=== PATIENT | male | born 1955 | race Caucasian/White ===

== ENCOUNTER 2025-03-31 22:25 | Emergency (ER) | payer BC, MEDICARE ==
[~2025-03-31] VITALS: Ht 172.7 cm; Wt 77.5 kg
--- NOTE | 2025-03-31 22:35 | ED.PDOC ---
History of Present Illness HPI Comments 70-year-old male came to ER by EMS for fever. Patient has history of hypertension, diabetes and dyslipidemia. States for the past week, he has been having flu-like symptoms, intermittent episodes of fever and chills, generalized weakness, body malaise, nausea and loss of appetite. Upon arrival temperature 103 F. Patient denies any recent travel or new food sources. Patient did not look toxic. Chief Complaint: Fever Time Seen by MD: 22:34 Reviewed Notes: Nurses Notes, Broadcast Technician Notes Allergies: Coded Allergies: NO KNOWN ALLERGIES (Unverified , 03/31/25) Information Source: Patient, Emergency Med Personnel Mode of Arrival: EMS Severity: Moderate Timing: Days Duration: Intermittent Prehospital treatment: None Past Medical History PAST MEDICAL HISTORY: ESRD, High Lipids, HTN Surgical History: Denies all surgeries Family History Family History: Reviewed,noncontributory to illness Social History Smoker: Non-Smoker Alcohol: Denies ETOH Use Drugs: Denies Drug Use Lives In: Home Constitutional: reports: chills, fatigue, fever, malaise, weakness; denies: diaphoresis, sweats, others EENTM: denies: blurred vision, double vision, ear bleeding, ear discharge, ear drainage, ear pain, ear ringing, eye pain, eye redness, hearing loss, mouth pain, mouth swelling, nasal discharge, nose bleeding, nose congestion, nose pain, photophobia, tearing, throat pain, throat swelling, voice changes, others Respiratory: denies: cough, hemoptysis, orthopnea, SOB at rest, shortness of breath, SOB with excertion, stridor, wheezing, others Cardiovascular: denies: chest pain, dizzy spells, diaphoresis, Dyspnea on exertion, edema, irregular heart beat, left arm pain, lightheadedness, palpitations, PND, syncope, others Gastrointestinal: reports: nausea, poor appetite; denies: abdomen distended, abdominal pain, blood streaked bowels, constipated, diarrhea, dysphagia, difficulty swallowing, hematemesis, melena, poor fluid intake, rectal bleeding, rectal pain, vomiting, others Genitourinary: denies: burning, dysuria, flank pain, frequency, hematuria, incontinence, penile discharge, penile sore, pain, testicle pain, testicle swelling, urgency, others Neurological: denies: dizziness, fainting, headache, left sided numbness, left sided weakness, numbness, paresthesia, pre-existing deficit, right sided numbness, right sided weakness, seizure, speech problems, tingling, tremors, weakness, others Musculoskeletal: denies: back pain, gout, joint pain, joint swelling, muscle pain, muscle stiffness, neck pain, others Integumetry: denies: bruises, change in color, change in hair/nails, dryness, laceration, lesions, lumps, rash, wounds, others Allergic/Immunocompromised: denies: Difficulty Healing, Frequent Infections, Hives, Itching, others Hematologic/Lymphatic: denies: anemia, blood clots, easy bleeding, easy bruis ing, swollen glands, others Endocrine: denies: excessive hunger, excessive sweating, excessive thirst, exc essive urination, flushing, intolerance to cold, intolerance to heat, unexplained weight gain, unexplained weight loss, others Psychiatric: denies: anxiety, bipolar disorder, depression, hopeless, panic disorder, schizophrenia, sleepless, suicidal, others Physical Exam General Appearance: Moderate Distress (Distress due to continued fever concerns. Patient did not look toxic.), Normal HEENT: Normal ENT Inspection, Pharynx Normal, TMs Normal Neck: Full Range of Motion, Non-Tender, Normal, Normal Inspection Respiratory: Chest Non-Tender, Lungs Clear, No Accessory Muscle Use, No Respiratory Distress, Normal Breath Sounds Cardiovascular: No Edema, No JVD, No Murmur, No Gallop, Normal Peripheral Pulses, Regular Rate/Rhythm Breast Exam: Deferred Gastrointestinal: No Organomegaly, Non Tender, No Pulsatile Mass, Normal Bowel Sounds, Soft Genitalia: Deferred Pelvic: Deferred Rectal: Deferred Extremities: No calf tenderness, Normal capillary refill, Normal inspection, Normal range of motion, Non-tender, No pedal edema Musculoskeletal : Apperance: Normal Neurologic: Alert, No Motor Deficits, Normal Affect, Normal Mood, No Sensory Deficits Cerebellar Function: Normal Reflexes: Normal Skin: Dry, Normal Color, Warm Lymphatic: No Adenopathy Was a procedure done? Was a procedure done?: No Differential Dx Considerations may include: Anemia, electrolyte imbalance, viral syndrome, urinary tract infection, sepsis X-Ray, Labs, Meds, VS Vital Signs Date Time Temp Pulse Resp B/P (MAP) Pulse Ox O2 Delivery O2 Flow Rate FiO2 7/5/25 23:39 99.7 03/31/25 23:39 99.7 99 17 147/75 (99) 95 99.7 03/31/25 22:58 103.1 03/31/25 22:50 107 03/31/25 22:41 103.1 113 18 160/81 (107) 96 103.1 03/31/25 22:40 103.1 113 18 160/81 (107) 96 103.1 03/31/25 22:40 113 18 96 Room Air 03/31/25 22:40 103.1 113 18 160/81 (107) 96 103.1 Lab Test 03/31/25 22:59 03/31/25 22:45 03/31/25 22:41 Range/Units Urine Color Yellow Yellow Urine Clarity Clear Clear Urine pH 5.5 5.0-9.0 Urine Specific [place] 1.036 H 1.001-1.035 Urine Protein Trace H Negative Urine Ketones 2+ H Negative Urine Blood 2+ H Negative /uL Urine Nitrite Negative Negative Urine Bilirubin Negative Negative Urine Urobilinogen Normal Negative mg/dL Urine Leukocyte Esterase Negative Negative /uL Urine RBC 8 0 - 3 /hpf Urine Microscopic WBC 1 0-3 /HPF Urine Squamous Epithelial Cells None seen <5 /hpf Urine Bacteria None seen None Seen /hpf Urine Glucose 4+ H Normal mg/dL Influenza Type A Antigen Negative Negative Influenza Type B Antigen Negative Negative SARS-CoV-2 Antigen (Rapid) Negative NEGATIVE White Blood Count 7.3 4.4-10.8 10^3/uL Red Blood Count 4.64 4.5-5.90 10^6/uL Hemoglobin 14.3 13.5-17.5 g/dL Hematocrit 41.1 41.0-53.0 % Mean Corpuscular Volume 88.5 80.0-100.0 fL Mean Corpuscular Hemoglobin 30.8 28.0-32.0 pg Mean Corpuscular Hemoglobin Concent 34.8 32.0-36.0 g/dL Red Cell Distribution Width 12.8 11.8-14.3 % Platelet Count 139 L 140-450 10^3/uL Mean Platelet Volume 8.4 6.9-10.8 fL Neutrophils (%) (Auto) 76.2 37.0-80.0 % Lymphocytes (%) (Auto) 7.8 L 10.0-50.0 % Monocytes (%) (Auto) 15.5 H 0.0-12.0 % Eosinophils (%) (Auto) 0.1 0.0-7.0 % Basophils (%) (Auto) 0.4 0.0-2.0 % Neutrophils # (Auto) 5.6 1.6-8.6 10 ^3/uL Lymphocytes # (Auto) 0.6 0.4-5.4 10 ^3/uL Monocytes # (Auto) 1.1 0-1.3 10 ^3/uL Eosinophils # (Auto) 0 0-0.8 10 ^3/uL Basophils # (Auto) 0 0-0.2 10 ^3/uL Nucleated Red Blood Cells 0.0 % Sodium Level 129 L 136-145 mmol/L Potassium Level 4.5 3.5-5.1 mmol/L Chloride Level 97 L 98-107 mmol/L Carbon Dioxide Level 19 L 20-31 mmol/L Anion Gap 13 5-15 Blood Urea Nitrogen 18 9-23 mg/dL Creatinine 1.01 0.700-1.30 mg/dL Glomerular Filtration Rate Calc 80 >90 mL/min BUN/Creatinine Ratio 17.8 10.0-20.0 Serum Glucose 305 H 74-106 mg/dL Calcium Level 9.9 8.7-10.4 mg/dL Current Medications Medications (Trade) Dose Ordered Sig/Mary Route Start Time Stop Time Status Last Admin Acetaminophen (Tylenol Tablet Or Capsule) 1,000 mg ONCE ONCE PO 03/31/25 22:45 03/31/25 22:46 DC 03/31/25 22:58 Sodium Chloride 1,000 ml @ 1,000 mls/hr Q1H ONCE IV 03/31/25 23:00 03/31/25 23:59 DC 03/31/25 22:58 X-Ray, Labs, Meds, VS Comment All studies performed the ED were evaluated by me personally. Swabs were unremarkable for any COVID or influenza. Serum studies revealed a poorly controlled diabetes with a glucose of over 300 and a mild hypokalemia. Rony almeida's temperature returned into acceptable range as did his blood pressure and heart rate. Patient will be discharged home with Tylenol and or Motrin as needed for symptomatic relief. Patient has been advised to utilize good hydration and healthy nutrition throughout illness event. Time of 1ST Reevaluation: 01:16 Reevaluation 1ST: Improved Consultation: PCP Patient Education/Counseling: Diagnosis, Treatment Family Education/Counseling: Diagnosis, Treatment, No Family Present SEPSIS Sepsis Screen Recent Procedure: No Heart Rate >90: Yes Temp<36 C (96.8 F) or >38.3 C: Yes SBP <90 or MAP <65 mmHG: No New Acute Mental Status Change: No Is the patient on CPAP, BIPAP,: No IV fluid challenge completed?: No SEPSIS EXCLUSION NOTE: Patient arrived with a fever and therefore, tachycardia and blood pressure concerns accompanied that issue. Once the temperature was reduced, patient's vitals stabilized. Patient never appeared septic and laboratories confirmed that. Physician Orders Sodium Chloride 0.9% (03/31/25 22:45) Heplock Iv (03/31/25 ) Vital Signs Date Time Temp Pulse Resp B/P (MAP) Pulse Ox O2 Delivery O2 Flow Rate FiO2 03/31/25 23:39 99.7 03/31/25 23:39 99.7 99 17 147/75 (99) 95 99.7 03/31/25 22:58 103.1 03/31/25 22:50 107 03/31/25 22:41 103.1 113 18 160/81 (107) 96 103.1 03/31/25 22:40 103.1 113 18 160/81 (107) 96 103.1 03/31/25 22:40 113 18 96 Room Air 03/31/25 22:40 103.1 113 18 160/81 (107) 96 103.1 Laboratory Tests Test 03/31/25 22:41 White Blood Count 7.3 10^3/uL (4.4-10.8) Medications Medications Dose Ordered Sig/Mary Route Start Time Stop Time Status Last Admin Dose Admin Acetaminophen 1,000 mg ONCE ONCE PO 03/31/25 22:45 03/31/25 22:46 DC 03/31/25 22:58 Sodium Chloride 1,000 ml @ 1,000 mls/hr Q1H ONCE IV 03/31/25 23:00 03/31/25 23:59 DC 03/31/25 22:58 Departure 1 Departure Time of Disposition: 01:18 Impression: Primary Impression: Viral illness Disposition: HOME / SELF CARE / HOMELESS Condition: Stable Additional Instructions: Advised patient utilize medication as needed for symptomatic fever reduction and nausea relief. Patient should practice good hydration and healthy nutrition throughout illness event. e-Prescriptions Ondansetron Odt 4MG Tab (ZOFRAN PO) 4 Mg Tb 4 MG PO Q6HP PRN, #20 TAB ODT TAB-DISSOLVE IN MOUTH, THEN SWALLOW Prov: RANDY SMITH PAC 04/01/25 Ibuprofen Micronized (Ibuprofen) 800 Mg Tab 800 MG PO Q8HP PRN, #20 TAB Prov: RANDY SMITH PAC 04/01/25 Acetaminophen (Acetaminophen) 500 Mg Tab 500 MG PO Q4HP PRN, #30 TAB Prov: RANDY SMITH PAC 04/01/25 Discharged With: Self, Friend Critical Care Note Critical Care Time?: No Stability Stability form required: No Heart Score Heart Score: Heart Score Response (Comments) Value History N/A 0 EKG N/A 0 Age N/A 0 Risk Factors N/A 0 Troponin N/A 0 Total 0 I personally scribed for RANDY SMITH PAC ([email or web address]) on 03/31/25 at 22:35. Electronically submitted by Bc Escalera ([facility] RANDY SMITH PAC Mar 31, 2025 22:35
[2025-03-31] MEDS ORDERED: ACETAMINOPHEN 325 MG TAB PO ONE (22:45)
--- NOTE | 2025-03-31 22:51 | ECG ---
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
[2025-03-31] MEDS: SODIUM CHLORIDE 0.9% 1,000 ML IV ONE ×2 (22:57→22:58)
[2025-03-31 22:58] LABS: Hematocrit 41.1 % (41.0-53.0); Hemoglobin 14.3 g/dL (13.5-17.5); Mean Corpuscular Hemoglobin 30.8 pg (28.0-32.0); Mean Corpuscular Volume 88.5 fL (80.0-100.0); Nucleated Red Blood Cells % 0.0 %
[2025-03-31] MEDS: ACETAMINOPHEN 500 MG TAB or CAP PO ONE (22:58)
[2025-03-31 23:01] LABS: Potassium 4.5 mmol/L (3.5-5.1)
[2025-03-31 23:02] LABS: Anion Gap 13 (5-15); Calcium 9.9 mg/dL (8.7-10.4)
[2025-03-31 23:04] LABS: Carbon Dioxide 19 mmol/L (20-31); Chloride 97 mmol/L (98-107); Sodium 129 mmol/L (136-145)
[2025-03-31 23:07] LABS: BUN/Creatinine Ratio 17.8 (10.0-20.0); Blood Urea Nitrogen 18 mg/dL (9-23); Glucose 305 mg/dL (74-106)
[2025-03-31 23:10] LABS: COVID19 ANTIGEN SOFIA FIA NEGATIVE (NEGATIVE)
[2025-03-31 23:39] VITALS: BP 147/75; PULSE 99; RESP 17; TEMP 99.7; O2SAT 95
[2025-04-01 00:47] LABS: Urine Protein, UAD TRACE (Negative)
[2025-04-01] MEDS ORDERED: ZOFR4T PO (01:19)
[2025-04-01] MEDS ORDERED: IBUP-1455 PO (01:19)
[2025-04-01] MEDS ORDERED: ACET500T58 PO (01:19)
[2025-04-01] MEDS: POTASSIUM EFFERVESENT TAB 25 MEQ PO ONE (01:33)
== END 2025-04-01 01:32 | disposition home or self-care (01) ==
LOC: ER 22:25 → EDBD 22:25 → ER 04-01 01:32
DX: B34.9 Viral infection, unspecified (principal); I12.0 Hypertensive chronic kidney disease with stage 5 chronic kidney disease or end stage renal disease; N18.6 End stage renal disease; E78.5 Hyperlipidemia, unspecified; Z20.822 Contact with and (suspected) exposure to COVID-19
CPT/HCPCS: 36415; 80048; 81001; 82947; 85025; 87426; 87804; 93005; 96360; 99284; J7030

== ENCOUNTER 2025-04-12 08:29 | Inpatient (IN) | payer BC, MEDICARE ==
[~2025-04-12] VITALS: Ht 172.7 cm; Wt 75.0 kg
[~2025-04-12 08:29] MED LIST: ACET500T58 PO; IBUP-1455 PO; ZOFR4T PO
--- NOTE | 2025-04-12 08:56 | ED.PDOC ---
SOB-HPI HPI Comments THIS IS A 70 YEAR OLD MALE PRESENTING TO THE ED WITH CHIEF COMPLAINT OF FLU-LIKE ILLNESS. PATIENT REPORTS THAT HE HAS BEEN EXPERIENCING SYMPTOMS OF FATIGUE, POOR APPETITE, AND BROWN PRODUCTIVE COUGH SINCE 03/31/25. PATIENT RELAYS THAT HE WAS SEEN IN [facility] ON 03/31 AND WAS DIAGNOSED WITH A URI, TAKING ANTIBIOTICS PRESCRIBED BY THE ED AND FROM HIS PCP AFTERWARDS, BUT NO RELIEF HAS BEEN NOTED. PT STILL C/O WEAK, NO ENERGY AND UNABLE TO SLEEP AT NIGHT. PATIENT DENIES ANY SOB, CHEST PAIN, FEVER, CHILLS, OR N/V, HEADASCHE, DIZZINESS AND OTHER COMPLAINTS. NO OTHER SYMPTOMS REPORTED AT THIS TIME OF CARE. Chief Complaint: Flu like Time Seen by MD: 08:53 Reviewed notes: Nurses Notes, Medications, Allergies Information Source: Patient Mode of Arrival: Ambulatory Severity: Moderate Timing: Weeks Duration: Since onset, Days Context: At Rest PE Risk Factors: None History of: Recent URI, Recent Antibiotic Prehospital treatment: Treatment, Other (ANTIBIOTICS) Modifying Factors: Nothing Associated Signs and Symptoms: Cough If cough with SOB: Productive Past Medical History PAST MEDICAL HISTORY: DM, High Lipids, HTN Surgical History: Denies all surgeries Family History Family History: Reviewed,noncontributory to illness Social History Smoker: Non-Smoker Alcohol: Denies ETOH Use Drugs: Denies Drug Use Lives In: Home Constitutional: reports: fatigue; denies: chills, diaphoresis, fever, malaise, sweats, weakness, others EENTM: denies: blurred vision, double vision, ear bleeding, ear discharge, ear drainage, ear pain, ear ringing, eye pain, eye redness, hearing loss, mouth pain, mouth swelling, nasal discharge, nose bleeding, nose congestion, nose pain, photophobia, tearing, throat pain, throat swelling, voice changes, others Respiratory: reports: cough; denies: hemoptysis, orthopnea, SOB at rest, shortness of breath, SOB with excertion, stridor, wheezing, others Cardiovascular: denies: chest pain, dizzy spells, diaphoresis, Dyspnea on exertion, edema, irregular heart beat, left arm pain, lightheadedness, palpitations, PND, syncope, others Gastrointestinal: reports: poor appetite; denies: abdomen distended, abdominal pain, blood streaked bowels, constipated, diarrhea, dysphagia, difficulty swallowing, hematemesis, melena, nausea, poor fluid intake, rectal bleeding, rectal pain, vomiting, others Genitourinary: denies: burning, dysuria, flank pain, frequency, hematuria, incontinence, penile discharge, penile sore, pain, testicle pain, testicle swelling, urgency, others Neurological: denies: dizziness, fainting, headache, left sided numbness, left sided weakness, numbness, paresthesia, pre-existing deficit, right sided numbness, right sided weakness, seizure, speech problems, tingling, tremors, weakness, others Musculoskeletal: denies: back pain, gout, joint pain, joint swelling, muscle pain, muscle stiffness, neck pain, others Integumetry: denies: bruises, change in color, change in hair/nails, dryness, laceration, lesions, lumps, rash, wounds, others Allergic/Immunocompromised: denies: Difficulty Healing, Frequent Infections, Hives, Itching, others Hematologic/Lymphatic: denies: anemia, blood clots, easy bleeding, easy bruising, swollen glands, others Endocrine: denies: excessive hunger, excessive sweating, excessive thirst, excessive urination, flushing, intolerance to cold, intolerance to heat, unexplained weight gain, unexplained weight loss, others Psychiatric: denies: anxiety, bipolar disorder, depression, hopeless, panic disorder, schizophrenia, sleepless, suicidal, others All Other Systems: Reviewed and Negative Physical Exam General Appearance: Mild Distress, Normal HEENT: Normal ENT Inspection, Pharynx Normal, TMs Normal Neck: Full Range of Motion, Non-Tender, Normal, Normal Inspection Respiratory: Chest Non-Tender, Lungs Clear, No Accessory Muscle Use, No Respiratory Distress, Normal Breath Sounds Cardiovascular: No Edema, No JVD, No Murmur, No Gallop, Normal Peripheral Pulses, Regular Rate/Rhythm Breast Exam: Deferred Gastrointestinal: No Organomegaly, Non Tender, No Pulsatile Mass, Normal Bowel Sounds, Soft Genitalia: Deferred Pelvic: Deferred Rectal: Deferred Extremities: No calf tenderness, Normal capillary refill, Normal inspection, Normal range of motion, Non-tender, No pedal edema Musculoskeletal : Apperance: Normal Neurologic: Alert, chemist helper II-XII nml as Tested, No Motor Deficits, Normal Affect, Normal Mood, No Sensory Deficits Cerebellar Function: Normal Reflexes: Normal Skin: Dry, Normal Color, Warm Peripheral Pulses: 2+ carotid (R), 2+ carotid (L) Lymphatic: No Adenopathy Was a procedure done? Was a procedure done?: No Differential Dx Differential Diagnosis: Bronchitis, Hyponatremia, Pneumonia, URI X-Ray, Labs, Meds, VS Vital Signs Date Time Temp Pulse Resp B/P (MAP) Pulse Ox O2 Delivery O2 Flow Rate FiO2 04/12/25 10:08 104 16 96 Room Air 04/12/25 10:08 97.6 104 16 107/72 (84) 96 97.6 04/12/25 08:52 97.6 110 18 132/93 (106) 95 97.6 Lab Test 04/12/25 09:36 04/12/25 08:49 Range/Units White Blood Count 9.4 4.4-10.8 10^3/uL Red Blood Count 4.74 4.5-5.90 10^6/uL Hemoglobin 14.2 13.5-17.5 g/dL Hematocrit 42.4 41.0-53.0 % Mean Corpuscular Volume 89.6 80.0-100.0 fL Mean Corpuscular Hemoglobin 30.0 28.0-32.0 pg Mean Corpuscular Hemoglobin Concent 33.5 32.0-36.0 g/dL Red Cell Distribution Width 14.3 11.8-14.3 % Platelet Count 50 L 140-450 10^3/uL Mean Platelet Volume 9.5 6.9-10.8 fL Neutrophils (%) (Auto) 65.9 37.0-80.0 % Lymphocytes (%) (Auto) 20.4 10.0-50.0 % Monocytes (%) (Auto) 13.2 H 0.0-12.0 % Eosinophils (%) (Auto) 0.1 0.0-7.0 % Basophils (%) (Auto) 0.4 0.0-2.0 % Neutrophils # (Auto) 6.2 1.6-8.6 10 ^3/uL Lymphocytes # (Auto) 1.9 0.4-5.4 10 ^3/uL Monocytes # (Auto) 1.2 0-1.3 10 ^3/uL Eosinophils # (Auto) 0 0-0.8 10 ^3/uL Basophils # (Auto) 0 0-0.2 10 ^3/uL Nucleated Red Blood Cells 0.1 % Platelet Estimate Decreased Clumped Platelets Modera Sodium Level 130 L 136-145 mmol/L Potassium Level 5.4 H 3.5-5.1 mmol/L Chloride Level 97 L 98-107 mmol/L Carbon Dioxide Level 23 20-31 mmol/L Anion Gap 10 5-15 Blood Urea Nitrogen 15 9-23 mg/dL Creatinine 0.94 0.700-1.30 mg/dL Glomerular Filtration Rate Calc 87 >90 mL/min BUN/Creatinine Ratio 16.0 10.0-20.0 Serum Glucose 293 H 74-106 mg/dL Hemoglobin A1c 9.2 H <5.7 % A1C Calcium Level 10.2 8.7-10.4 mg/dL POC Glucose 331 H 70-106 mg/dl Current Medications Medications (Trade) Dose Ordered Sig/Mary Route Start Time Stop Time Status Last Admin Sodium Chloride 1,000 ml @ 1,000 mls/hr Q1H ONCE IV 04/12/25 09:00 04/12/25 09:59 DC 04/12/25 10:07 [place] [id number] Ph: [phone] DIAGNOSTIC IMAGING Diagnostic Imaging Report : [id number] Signed PATIENT: NICOLE PRIEST ACCT: [id number] UNIT: [id number] : 1955 LOC: ER ROOM / BED: / AGE / SEX: 70 / M ADM STATUS: REG ER SERVICE ORDERING PHYSICIAN: TERESE CAMARGO PROCEDURE(s): CXR2 - CHEST TWO VIEWS ROUTINE REASON: COUGH ORDER NUMBER(s): [id number], ACCESSION NUMBER(s): [id number] CHEST TWO VIEWS ROUTINE, HISTORY: COUGH COMPARISON: None None TECHNICAL DATA: 2 view of the chest was obtained. FINDINGS: Lines and tubes: None Cardiomediastinal silhouette: normal Pulmonary vasculature: normal Lung expansion: normal Lung airspace: normal Lung interstitium: normal Pleura: normal Pneumothorax: no Bones: Unremarkable Other: no IMPRESSION: No acute intrathoracic abnormality. ATED BY: HUAN LANDIN MD DICTATED DATE/TIME: 04/12/25928 SIGNED BY: HUAN LANDIN MD SIGNED DATE/TIME: 04/12/25928 CC: X-Ray, Labs, Meds, VS Comment EXTERNAL MEDICAL RECORDS REVIEWED: [NONE] INDEPENDENT HISTORIANS: [NONE] SOCIAL DETERMINANTS OF HEALTH: [NONE] LABS ORDERED: CBC, BMP, UA, HGB A1C REVIEWED AND INTERPRETED RESULTS: CHEST XR IMAGING ORDERED: CHEST XR TREATMENTS ORDERED: NS 1L IV PROCEDURES PERFORMED: NONE CRITICAL CARE TIME: NONE I HAVE DISCUSSED THE PATIENT WITH THE ATTENDING PHYSICIAN DR. GUNN AND HE AGREES WITH THE PATIENT'S PLAN OF CARE AND DISPOSITION. BASED ON HISTORY OF PRESENT ILLNESS, AND PHYSICAL EXAM, PATIENT WILL BE ADMITTED TO THE HOSPITAL FOR FURTHER IN PATIENT WORK UP. Images Reviewed?: Images reviewed and evaluated by me Time of 1ST Reevaluation: 09:51 Reevaluation 1ST: Unchanged Patient Education/Counseling: Diagnosis, Treatment Family Education/Counseling: Diagnosis, Treatment, No Family Present SEPSIS Sepsis Screen Physician Orders Urinalysis (04/12/25 08:53) Heplock Iv (04/12/25 ) Chest Two Views Routine (04/12/25 08:53) Vital Signs Date Time Temp Pulse Resp B/P (MAP) Pulse Ox O2 Delivery O2 Flow Rate FiO2 04/12/25 10:08 104 16 96 Room Air 04/12/25 10:08 97.6 104 16 107/72 (84) 96 97.6 04/12/25 08:52 97.6 110 18 132/93 (106) 95 97.6 Laboratory Tests Test 04/12/25 09:36 White Blood Count 9.4 10^3/uL (4.4-10.8) Medications Medications Dose Ordered Sig/Mary Route Start Time Stop Time Status Last Admin Dose Admin Sodium Chloride 1,000 ml @ 1,000 mls/hr Q1H ONCE IV 04/12/25 09:00 04/12/25 09:59 DC 04/12/25 10:07 Departure 1 Departure Time of Disposition: 11:00 Impression: Primary Impression: Fatigue Qualified Codes: R53.83 - Other fatigue Additional Impressions: Uncontrolled diabetes mellitus with hyperglycemia Qualified Codes: E11.65 - Type 2 diabetes mellitus with hyperglycemia Hyponatremia Failure of outpatient treatment Disposition: ADMITTED INPATIENT Condition: Serious Critical Care Note Critical Care Time?: No Stability Stability form required: Yes Unstable for transfer: Requires medication, ED Physician Assesment, Possible rapid decline Heart Score Heart Score: Heart Score Response (Comments) Value History N/A 0 EKG N/A 0 Age N/A 0 Risk Factors N/A 0 Troponin N/A 0 Total 0 I personally scribed for TERESE CAMARGO ([email or web address]) on 04/12/25 at 08:56. Electronically submitted by Alvin Linn ([email or web address]). I personally scribed for TERESE CAMARGO ([email or web address]) on 04/12/25 at 10:42. Electronically submitted by Alvin Linn ([email or web address]). I personally scribed for TERESE CAMARGO ([email or web address]) on 04/12/25 at 10:53. Electronically submitted by Alvin Linn ([email or web address]). I personally scribed for TERESE CAMARGO ([email or web address]) on 04/12/25 at 10:55. Electronically submitted by Alvin Linn ([email or web address]). TERESE CAMARGO Apr 12, 2025 08:56
--- NOTE | 2025-04-12 09:32 | DVH ---
XY CHEST TWO VIEWS ROUTINE, HISTORY: COUGH COMPARISON: None None TECHNICAL DATA: 2 view of the chest was obtained. FINDINGS: Lines and tubes: None Cardiomediastinal silhouette: normal Pulmonary vasculature: normal Lung expansion: normal Lung airspace: normal Lung interstitium: normal Pleura: normal Pneumothorax: no Bones: Unremarkable Other: no IMPRESSION: No acute intrathoracic abnormality.
[2025-04-12 09:57] LABS: Hematocrit 42.4 % (41.0-53.0); Hemoglobin 14.2 g/dL (13.5-17.5); Mean Corpuscular Hemoglobin 30.0 pg (28.0-32.0); Mean Corpuscular Volume 89.6 fL (80.0-100.0); Nucleated Red Blood Cells % 0.1 %
[2025-04-12] MEDS: SODIUM CHLORIDE 0.9% 1,000 ML IV ONE (10:07)
[2025-04-12 10:10] LABS: Anion Gap 10 (5-15); Calcium 10.2 mg/dL (8.7-10.4); Carbon Dioxide 23 mmol/L (20-31)
[2025-04-12 10:15] LABS: BUN/Creatinine Ratio 16.0 (10.0-20.0); Blood Urea Nitrogen 15 mg/dL (9-23)
[2025-04-12 10:16] LABS: Chloride 97 mmol/L (98-107); Glucose 293 mg/dL (74-106); Potassium 5.4 mmol/L (3.5-5.1); Sodium 130 mmol/L (136-145)
[2025-04-12 11:27] LABS: Urine Budding Yeast OCCASIONAL /hpf (None Seen); Urine Protein, UAD Negative (Negative)
[2025-04-12] MEDS ORDERED: DEXTROSE (50%) 50ML SYRG IV PRN (11:45)
[2025-04-12] MEDS: SODIUM ZIRCONIUM CYCL 10 GM PAK PO ONE (12:12)
[2025-04-12] MEDS ORDERED: ACETAMINOPHEN 325 MG TAB PO PRN (12:45)
[2025-04-12] MEDS ORDERED: ONDANSETRON HCL 4 MG/2 ML VIAL IV PRN (12:45)
[2025-04-12] MEDS ORDERED: NITROGLYCERIN 0.4 MG SL TAB SL PRN (12:45)
[2025-04-12] MEDS ORDERED: MORPHINE SULFATE INJ 2 MG/ml SYRG IV PRN (12:45)
[2025-04-12] MEDS ORDERED: ATEN25TA PO (12:47)
[2025-04-12] MEDS ORDERED: GEMF-66 PO (12:47)
[2025-04-12] MEDS ORDERED: LEVO50TA7 PO (12:47)
[2025-04-12 12:59] LABS: COVID19 ANTIGEN SOFIA FIA NEGATIVE (NEGATIVE)
--- NOTE | 2025-04-12 13:32 | DVHHP2 ---
History of Present Illness Reason for Visit: Weakness History of Present Illness Baljit Santo is a 70-year-old male with past medical history of diabetes, hyperlipidemia, hypertension, tonsillectomy, and appendectomy who presents to the ED with weakness and coughing up yellow phlegm since March 31. Patient states that he was in the hospital on March 31, was given antibiotics, and discharged. Patient reports that he has just been feeling weak and was recently diagnosed with with an upper respiratory infection then discharged. He also reports that he went to his primary care and still complaining of low energy. Patient denies any recent travels, recent ingestion of spoiled food, recent sick contacts, recent trauma or injury, chest pain, shortness of breath, fever, chills, lightheadedness, dizziness, urinary symptoms, abdominal pain, nausea, vomiting, or diarrhea. Patient reports that he quit tobacco use, quit alcohol use, and quit substance use in 1993. He also reports that he is compliant with his medications. Cardiovascular: HTN Endocrine: Diabetes Past Surgical History: Appendectomy, Tonsillectomy Family History: DM, Other (Mom with diabetes and heart disease. Dad with diabetes.) Smoke: Quit ALCOHOL: none (Quit) Drugs: None (Quit) Lives: with Family Domestic Violence: Neg Review of Systems Constitutional: Yes: Weakness Allergies: Coded Allergies: NO KNOWN ALLERGIES (Unverified , 03/31/25) Medications Current Medications Medications Dose Ordered Sig/Mary Route Start Time Stop Time Status Last Admin Dose Admin Diagnostic Test (Pha) 1 strip ACHS 04/12/25 17:00 Insulin Human Regular ACHS SC 04/12/25 17:00 Dextrose 50 ml UD PRN IV 04/12/25 11:45 Sodium Chloride 1,000 ml @ 60 mls/hr [id number] IV 04/12/25 12:45 UNV Ondansetron HCl 4 mg Q4HP PRN IV 04/12/25 12:45 UNV Acetaminophen 650 mg Q6HP PRN PO 04/12/25 12:45 UNV Nitroglycerin 0.4 mg Q5MINP PRN SL 04/12/25 12:45 UNV Morphine Sulfate 2 mg Q30M PRN IV 04/12/25 12:45 UNV Ceftriaxone Sodium 50 ml @ 100 mls/hr DAILY@09 IV 04/12/25 13:00 UNV Exam Vital Signs Vital Signs Date Time Temp Pulse Resp B/P (MAP) Pulse Ox O2 Delivery O2 Flow Rate FiO2 04/12/25 12:20 98.8 99 16 134/90 (105) 97 98.8 04/12/25 10:08 Room Air General Appearance: Alert, Oriented X3, Cooperative, No acute distress HEENT: Atraumatic, PERRLA, EOMI, Mucous membr. moist/pink Respiratory: Normal air movement Cardiovascular: Regular rate, Normal S1, Normal S2 Abdominal: Normal bowel sounds, Soft Extremities: No edema, Normal pulses Skin: No significant lesion Neuro: Normal gait, Normal speech, Strength at 5/5 X4 ext, Normal tone, Sensation intact Psych/Mental Status: Mental status NL, Mood NL Labs/Xrays Labs Test 04/12/25 11:57 04/12/25 11:56 04/12/25 10:57 04/12/25 09:36 Range/Units POC Glucose 174 H 70-106 mg/dl Urine Color Light-yellow Yellow Urine Clarity Clear Clear Urine pH 7.0 5.0-9.0 Urine Specific [place] 1.019 1.001-1.035 Urine Protein Negative Negative Urine Ketones Negative Negative Urine Blood Negative Negative /uL Urine Nitrite Negative Negative Urine Bilirubin Negative Negative Urine Urobilinogen Normal Negative mg/dL Urine Leukocyte Esterase Negative Negative /uL Urine RBC 1 0 - 3 /hpf Urine Microscopic WBC < 1 0-3 /HPF Urine Squamous Epithelial Cells None seen <5 /hpf Urine Bacteria None seen None Seen /hpf Urine Yeast (Budding) Occasional None Seen /hpf Urine Glucose 4+ H Normal mg/dL White Blood Count 9.4 4.4-10.8 10^3/uL Red Blood Count 4.74 4.5-5.90 10^6/uL Hemoglobin 14.2 13.5-17.5 g/dL Hematocrit 42.4 41.0-53.0 % Mean Corpuscular Volume 89.6 80.0-100.0 fL Mean Corpuscular Hemoglobin 30.0 28.0-32.0 pg Mean Corpuscular Hemoglobin Concent 33.5 32.0-36.0 g/dL Red Cell Distribution Width 14.3 11.8-14.3 % Platelet Count 50 L 140-450 10^3/uL Mean Platelet Volume 9.5 6.9-10.8 fL Neutrophils (%) (Auto) 65.9 37.0-80.0 % Lymphocytes (%) (Auto) 20.4 10.0-50.0 % Monocytes (%) (Auto) 13.2 H 0.0-12.0 % Eosinophils (%) (Auto) 0.1 0.0-7.0 % Basophils (%) (Auto) 0.4 0.0-2.0 % Neutrophils # (Auto) 6.2 1.6-8.6 10 ^3/uL Lymphocytes # (Auto) 1.9 0.4-5.4 10 ^3/uL Monocytes # (Auto) 1.2 0-1.3 10 ^3/uL Eosinophils # (Auto) 0 0-0.8 10 ^3/uL Basophils # (Auto) 0 0-0.2 10 ^3/uL Nucleated Red Blood Cells 0.1 % Platelet Estimate Decreased Clumped Platelets Modera Sodium Level 130 L 136-145 mmol/L Potassium Level 5.4 H 3.5-5.1 mmol/L Chloride Level 97 L 98-107 mmol/L Carbon Dioxide Level 23 20-31 mmol/L Anion Gap 10 5-15 Blood Urea Nitrogen 15 9-23 mg/dL Creatinine 0.94 0.700-1.30 mg/dL Glomerular Filtration Rate Calc 87 >90 mL/min BUN/Creatinine Ratio 16.0 10.0-20.0 Serum Glucose 293 H 74-106 mg/dL Hemoglobin A1c 9.2 H <5.7 % A1C Calcium Level 10.2 8.7-10.4 mg/dL XY CHEST TWO VIEWS ROUTINE, HISTORY: COUGH COMPARISON: None None TECHNICAL DATA: 2 view of the chest was obtained. FINDINGS: Lines and tubes: None Cardiomediastinal silhouette: normal Pulmonary vasculature: normal Lung expansion: normal Lung airspace: normal Lung interstitium: normal Pleura: normal Pneumothorax: no Bones: Unremarkable Other: no IMPRESSION: No acute intrathoracic abnormality. SEPSIS Sepsis Screen Date sepsis recognized/suspect: Apr 12, 2025 Time Sepsis recognized/suspect: 08 Recent Procedure: No On Antibiotic Therapy: No Respiratory Rate >20: No Heart Rate >90: Yes Temp<36 C (96.8 F) or >38.3 C: No SBP <90 or MAP <65 mmHG: No New Acute Mental Status Change: No Is the patient on CPAP, BIPAP,: No Physician Orders Heplock Iv (04/12/25 ) Chest Two Views Routine (04/12/25 08:53) Rapid Influenza A&B (04/12/25 11:33) Covid19 Antigen Nola (04/12/25 ) Glucose Blood (Accu-Chek Comfort Curve T (04/12/25 17:00) Insulin R (Human) (Insulin R) (04/12/25 17:00) Dextrose 50% Syringe (04/12/25 11:45) Admit (04/12/25 12:45) Allergies (04/12/25 12:45) Code Status (04/12/25 12:45) Sodium Chloride 0.9% (04/12/25 12:45) Ondansetron Hcl (Zofran) (04/12/25 12:45) Complete Blood Count (04/13/25 04:00) Comprehensive Metabolic Panel (04/13/25 04:00) Cardiac Diet-2gna,Lofat,Lochol (04/12/25 Lunch) Acetaminophen Tablet (Tylenol Tablet) (04/12/25 12:45) Sequential Compression Device (04/12/25 ) Nitroglycerin Sublingual (Ntrostat Subli (04/12/25 12:45) Morphine Sulfate Injection (04/12/25 12:45) Stat Ekg For Chest Pain (04/12/25 12:45) Notify Md Of Changes From Base (04/12/25 12:45) Firewall Security Engineer For 24 Hours (04/12/25 12:45) Emergency Dysrhythmia Protocol (04/12/25 12:45) Rhythm Strips Once Every Shift (04/12/25 12:45) Oxygen By Nasal Cannula (04/12/25 12:45) Ceftriaxone 1gm/50ml D5w (Rocephin) (04/12/25 13:00) Atenolol Tablet (Tenormin Tablet) (04/13/25 10:00) Gemfibrozil Tablet (Lopid Tablet) (04/13/25 10:00) Levothyroxine Tablet (Synthroid Tablet) (04/13/25 10:00) Vital Signs Date Time Temp Pulse Resp B/P (MAP) Pulse Ox O2 Delivery O2 Flow Rate FiO2 04/12/25 12:20 98.8 99 16 134/90 (105) 97 98.8 04/12/25 10:08 104 16 96 Room Air 04/12/25 10:08 97.6 104 16 107/72 (84) 96 97.6 04/12/25 08:52 97.6 110 18 132/93 (106) 95 97.6 Laboratory Tests Test 04/12/25 09:36 White Blood Count 9.4 10^3/uL (4.4-10.8) Medications Medications Dose Ordered Sig/Mary Route Start Time Stop Time Status Last Admin Dose Admin Sodium Chloride 1,000 ml @ 1,000 mls/hr Q1H ONCE IV 04/12/25 09:00 04/12/25 09:59 DC 04/12/25 10:07 1,000 MLS/HR Zirconium Oxide 10 gm ONCE ONCE PO 04/12/25 11:45 04/12/25 12:03 DC 04/12/25 12:12 10 GM Assessment/Plan Assessment/Plan Assessment Generalized weakness Hyponatremia Hyperkalemia Diabetes type 2 uncontrolled History of hyperlipidemia History of hypertension and has a history of tonsillectomy History of appendectomy Ex-smoker Ex alcohol use Ex drug use, quit in 1983 Plan Admit to tele Potassium lowering agents Hemoglobin A1c ISS and Accu-Cheks Flu test COVID test IV antibiotics-ceftriaxone UA NS 1 L given ED RBC morphology Chest x-ray noted Diet Home medications reconciled DVT prophylaxis-not indicated patient ambulating PUD prophylaxis-not indicated no history of GERD or GI bleed Discussed plan of care with patient and nurse [id number] Behavior change smoking [id number] Preventive counseling healthy eating habits, physical activity, and regular checkups Plan discussed with: Patient My Orders Orders - ROXI CARNEY COMMUNICATIONS ADMINISTRATOR Procedure Category Date Status Time Rapid Influenza A&B LAB 04/12/25 In Process 11:33 Covid19 Antigen Nola LAB 04/12/25 In Process Glucose Blood PHA 04/12/25 In Process (Accu-Chek Comfort 17:00 Insulin R (Human) PHA 04/12/25 In Process (Insulin R) 17:00 Dextrose 50% Syringe PHA 04/12/25 In Process 11:45 Admit ADMIT 04/12/25 Transmitted 12:45 Allergies PAT 04/12/25 In Process 12:45 Code Status CODE 04/12/25 Transmitted 12:45 Sodium Chloride 0.9% PHA 04/12/25 Logged 12:45 Ondansetron Hcl PHA 04/12/25 Logged (Zofran) 12:45 Complete Blood Count LAB 04/13/25 Verified 04:00 Comprehensive LAB 04/13/25 Verified Metabolic Panel 04:00 Cardiac DIET 04/12/25 Transmitted Diet-2gna,Lofat,Lochol Lunch Acetaminophen Tablet PHA 04/12/25 Logged (Tylenol Tablet) 12:45 Sequential PAT 04/12/25 In Process Compression Device Nitroglycerin [facility] 04/12/25 Logged Sublingual (Ntrostat 12:45 Morphine Sulfate [facility] 04/12/25 Logged Injection 12:45 Stat Ekg For Chest [facility] 04/12/25 In Process Pain 12:45 Notify Md Of Changes [facility] 04/12/25 In Process From Base 12:45 Firewall Security Engineer For [facility] 04/12/25 In Process 24 Hours 12:45 Emergency Dysrhythmia [facility] 04/12/25 In Process Protocol 12:45 Rhythm Strips Once [facility] 04/12/25 In Process Every Shift 12:45 Oxygen By Nasal RT 04/12/25 Transmitted Cannula 12:45 Ceftriaxone 1gm/50ml [facility] 04/12/25 Logged D5w (Rocephin) 13:00 Atenolol Tablet [facility] 04/13/25 Verified (Tenormin Tablet) 10:00 Gemfibrozil Tablet [facility] 04/13/25 Verified (Lopid Tablet) 10:00 Levothyroxine Tablet [facility] 04/13/25 Verified (Synthroid Tablet) 10:00 Date of Service: Apr 12, 2025 Billing Provider: ROXI CARNEY Common Visit Codes: [id number] INP/OBS CARE (HIGH) Secondary Visit Codes: [id number] COUNSELING IND, [id number] CHNG SMOKING 3-10m ROXI CARNEY Apr 12, 2025 13:32
[2025-04-12 13:54] VITALS: PULSE 87; RESP 19; O2SAT 98
[2025-04-12] MEDS: cefTRIAXone 1GM/50ML D5W 50 ML IV SCH (17:54)
[2025-04-12] MEDS: SODIUM CHLORIDE 0.9% 1,000 ML IV SCH (17:54)
[2025-04-12] MEDS: ACCU-CHEK COMFORT CURVE STRIP VI SCH (17:55)
[2025-04-12] MEDS: InsuLIN REG 1unit/0.01ml Soln (100units/ml) SC SCH (18:05)
[2025-04-12 20:00] VITALS: PULSE 92; RESP 16
[2025-04-12 21:00] VITALS: BP 126/106; PULSE 98; RESP 18; TEMP 99.9; O2SAT 93
[2025-04-13] VITALS (8 sets, daily range): BP systolic 131–155; BP diastolic 60–85; PULSE 64–84; RESP 17–20; TEMP 98.5–99.1; O2SAT 93–95
[2025-04-13 07:35] LABS: Hematocrit 39.4 % (41.0-53.0); Hemoglobin 13.3 g/dL (13.5-17.5); Mean Corpuscular Hemoglobin 30.1 pg (28.0-32.0); Mean Corpuscular Volume 89.2 fL (80.0-100.0); Nucleated Red Blood Cells % 0.0 %
[2025-04-13 07:40] LABS: Alkaline Phosphatase 94 U/L (46-116); Anion Gap 9 (5-15); BUN/Creatinine Ratio 13.9 (10.0-20.0); Blood Urea Nitrogen 10 mg/dL (9-23); Calcium 9.2 mg/dL (8.7-10.4); Carbon Dioxide 24 mmol/L (20-31); Chloride 100 mmol/L (98-107); Potassium 4.4 mmol/L (3.5-5.1); Total Protein 6.5 g/dL (5.7-8.2)
[2025-04-13 07:41] LABS: Albumin 3.5 g/dL (3.2-4.8); Bilirubin, Total 0.6 mg/dL (0.2-1.0)
[2025-04-13 07:50] LABS: Sodium 133 mmol/L (136-145)
[2025-04-13 07:51] LABS: Alanine Aminotransferase 41 U/L (7-40); Glucose 150 mg/dL (74-106)
[2025-04-13] MEDS: LEVOTHYROXINE SODIUM 50 MCG TAB PO SCH (10:26)
[2025-04-13] MEDS: ATENOLOL 25 MG TAB PO SCH (10:27)
[2025-04-13] MEDS: GEMFIBROZIL 600 MG TAB PO SCH (10:28)
--- NOTE | 2025-04-13 15:18 | DVHPNRES ---
Progress Note Date Seen: Apr 13, 2025 Resident Creating Document: AZRA POLANCO RESIDENT Medical Necessity Reason Pt with a Central, PICC or Fol: No Subjective Review of Systems Baljit Santo, a 70-year-old male with past medical history of diabetes, hyperlipidemia, hypertension, tonsillectomy, and hernia repair presented to the emergency department with low energy, fatigue, dehydration. Patient reports that on March 31 he had come here to the hospital and was treated with antibiotics and discharged for a upper respiratory tract infection. After discharge she met his primary care doctor the next day who gave him a vitamin B12 injection. But since yesterday he has been feeling even more fatigued and with no energy. He says he was sweating a lot and was drenched in sweat and also has loss of appetite. Patient denies any recent travel, recent ingestion of spoiled food, recent sick contacts, recent trauma or injury, chest pain, shortness of breath, fever, chills, lightheadedness, dizziness, urinary symptoms, abdominal pain, nausea, or any change in bowel and bladder habits. PMH: HTN, Diabetes, hypothyroidism PSH: Appendectomy, right-sided inguinal Hernia repair Family History: mother had diabetes and heart disease. Father had diabetes social history: Patient lives with family. He reports that he quit smoking and drinking 1993 and does not do any drugs either Home medication: Metformin, glipizide, gemfibrozil, atenolol, levothyroxine, Farxiga Allergies: None Patient seen and examined by me in the bedside. Overnight events reviewed. Patient reports feeling much better today and had increased appetite. He sees that he ate breakfast quite well after many days. However he has not been able to sleep properly because of the hospital environment. He still feels a bit exhausted and low in energy but better than before. Rest of the ROS is negative Objective vital signs Vital Sign Date Time Temp Pulse Resp B/P (MAP) Pulse Ox O2 Delivery O2 Flow Rate FiO2 04/13/25 13:00 98.5 71 20 142/85 (104) 93 98.5 04/12/25 20:00 Room Air* 0 21 Total Intake and Output 04/12/25 04/12/25 04/13/25 15:00 23:00 07:00 Intake Total 800 ml Balance 800 ml medications Current Medications Medications Dose Ordered Sig/Mary Route Start Time Stop Time Status Last Admin Dose Admin Diagnostic Test (Pha) 1 strip ACHS 04/12/25 17:00 04/13/25 06:48 1 STRIP Insulin Human Regular ACHS SC 04/12/25 17:00 04/13/25 06:48 3 UNITS Dextrose 50 ml UD PRN IV 04/12/25 11:45 Sodium Chloride 1,000 ml @ 60 mls/hr [id number] IV 04/12/25 12:45 04/12/25 17:54 60 MLS/HR Ondansetron HCl 4 mg Q4HP PRN IV 04/12/25 12:45 Acetaminophen 650 mg Q6HP PRN PO 04/12/25 12:45 Nitroglycerin 0.4 mg Q5MINP PRN SL 04/12/25 12:45 Morphine Sulfate 2 mg Q30M PRN IV 04/12/25 12:45 Atenolol 25 mg DAILY PO 04/13/25 10:00 04/13/25 10:27 25 MG Gemfibrozil 600 mg DAILY PO 04/13/25 10:00 04/13/25 10:28 600 MG Levothyroxine Sodium 50 mcg DAILY PO 04/13/25 10:00 04/13/25 10:26 50 MCG Melatonin 10 mg HS PO 04/13/25 22:00 Examination General Appearance: Alert, Oriented to time, place and person, Cooperative, No acute distress HEENT: Atraumatic, PERRLA, EOMI, Mucous membrane is moist/pink Respiratory: Normal air movement in bilateral lung travis, no abnormal sounds Cardiovascular: Regular rate, Normal S1, Normal S2, no murmurs Abdominal: Normal bowel sounds, Soft, no tenderness Extremities: No edema, Normal pulses Skin: No significant lesion, linear, well approximated 3 cm scar on right inguinal region Neuro: Normal gait, Normal speech, Strength at 5/5 in all extremities, Normal tone, Sensation intact, no other sensory motor deficits Psych/Mental Status: normal mental status laboratory and microbiology Laboratory Tests 04/13/25 05:52 Test 04/13/25 05:52 Range/Units Serum Glucose 150 #H 74-106 mg/dL Labs and/or images reviewed: Labs reviewed by me, Image(s) reviewed by me Problem List/Assessment/Plan Problem List/Assessment/Plan # Generalized weakness likely from uncontrolled type 2 DM with hyperglycemia # Uncontrolled diabetes mellitus type 2 with hyperglycemia # Hyperkalemia due to ESTIVEN # ESTIVEN; can not rule out vasomotor nephropathy -continue IV fluids; avoid nephrotoxic agents -GFR has improved -Serum K levels back to normal from 5.5 to 4.4 today -Insulin sliding scale - Hemoglobin A1c 9.2 -ISS and Accu-Cheks -monitor labs and correct electrolytes if needed # R/o COVID/flu -rapid test ordered, pending - No antibiotics needed at this time # HTN # HLD -monitor BP -resume home meds GI prophylaxis: Not indicated DVT prophylaxis: Not indicated Diet: Cardiac plus diabetic Goals of care discussed with the patient for 20 minutes: Full code status Case discussed with Dr. Sommers, patient and nurse. Plan discussed with: Patient, Other (rn) Addendum Addendum Addendum I was physically present for the garcia portions of the service provided to patient by THE RESIDENT. I have reviewed the documentation, discussed the case with resident and agree with the resident's documentation except as noted. Also the patient's clinical case was discussed with the patient's nurse. This medical document was created using an electronic medical record system with computerized dictation system. Although this document has been carefully reviewed, there might still be some phonetic and typographical errors. These areas are purely typographical due to imperfections of the software programs, and do not reflect any compromise in the patient's medical care. Late signature. Date of Service: Apr 13, 2025 Billing Provider: KAYLAN SOMMERS MD Common Visit Codes: [id number] INP/OBS CARE(HIGH) Secondary Visit Codes: [id number] CARE PLAN 30 MINUTES (20 minutes) AZRA POLANCO RESIDENT Apr 13, 2025 15:18 JENNIFER ANGELES RESIDENT Apr 13, 2025 17:26 KAYLAN SOMMERS MD Apr 14, 2025 12:42
[2025-04-13] MEDS: MELATONIN 5 MG TAB PO SCH (22:04)
[2025-04-14 05:00] VITALS: BP 135/86; PULSE 82; RESP 16; TEMP 98; O2SAT 95
[2025-04-14 07:37] LABS: Hematocrit 39.8 % (41.0-53.0); Hemoglobin 13.4 g/dL (13.5-17.5); Mean Corpuscular Hemoglobin 29.9 pg (28.0-32.0); Mean Corpuscular Volume 88.4 fL (80.0-100.0); Nucleated Red Blood Cells % 0.1 %
[2025-04-14 07:41] LABS: Alkaline Phosphatase 91 U/L (46-116); Anion Gap 9 (5-15); BUN/Creatinine Ratio 16.1 (10.0-20.0); Blood Urea Nitrogen 10 mg/dL (9-23); Calcium 9.0 mg/dL (8.7-10.4); Carbon Dioxide 22 mmol/L (20-31); Chloride 100 mmol/L (98-107); Potassium 3.9 mmol/L (3.5-5.1)
[2025-04-14 07:42] LABS: Total Protein 6.5 g/dL (5.7-8.2)
[2025-04-14 07:43] LABS: Albumin 3.5 g/dL (3.2-4.8); Bilirubin, Total 0.6 mg/dL (0.2-1.0)
[2025-04-14 07:44] LABS: Alanine Aminotransferase 43 U/L (7-40); Glucose 188 mg/dL (74-106); Sodium 131 mmol/L (136-145)
[2025-04-14 08:00] VITALS: PULSE 79; O2SAT 95
[2025-04-14 09:00] VITALS: BP 136/81; PULSE 78; RESP 18; TEMP 98.5; O2SAT 96
[2025-04-14] MEDS: INSULIN LANTUS (GLARGINE) 1 /0.01ml (100units/ml) SC SCH (11:04)
[2025-04-14 13:00] VITALS: BP 118/84; PULSE 61; RESP 18; TEMP 98.4; O2SAT 95
[2025-04-14 14:30] VITALS: BP 134/70; PULSE 79
--- NOTE | 2025-04-14 14:35 | DVHDSRES ---
Discharge Summary Date of Admission Resident Creating Document: JENNIFER ANGELES RESIDENT Apr 12, 2025 at 12:45 Date of Discharge: Apr 14, 2025 Admitting Diagnosis Generalized weakness Labs/Diagnostic Data: Laboratory Results Test 04/14/25 10:54 04/14/25 06:23 04/13/25 12:19 04/13/25 05:52 POC Glucose 254 mg/dl (70-106) White Blood Count 8.2 10^3/uL (4.4-10.8) Red Blood Count 4.50 10^6/uL (4.5-5.90) Hemoglobin 13.4 g/dL (13.5-17.5) Hematocrit 39.8 % (41.0-53.0) Mean Corpuscular Volume 88.4 fL (80.0-100.0) Mean Corpuscular Hemoglobin 29.9 pg (28.0-32.0) Mean Corpuscular Hemoglobin Concent 33.8 g/dL (32.0-36.0) Red Cell Distribution Width 14.0 % (11.8-14.3) Platelet Count 145 10^3/uL (140-450) Mean Platelet Volume 9.3 fL (6.9-10.8) Neutrophils (%) (Auto) 67.0 % (37.0-80.0) Lymphocytes (%) (Auto) 18.9 % (10.0-50.0) Monocytes (%) (Auto) 13.3 % (0.0-12.0) Eosinophils (%) (Auto) 0.2 % (0.0-7.0) Basophils (%) (Auto) 0.6 % (0.0-2.0) Neutrophils # (Auto) 5.5 10 ^3/uL (1.6-8.6) Lymphocytes # (Auto) 1.6 10 ^3/uL (0.4-5.4) Monocytes # (Auto) 1.1 10 ^3/uL (0-1.3) Eosinophils # (Auto) 0 10 ^3/uL (0-0.8) Basophils # (Auto) 0.1 10 ^3/uL (0-0.2) Nucleated Red Blood Cells 0.1 % Sodium Level 131 mmol/L (136-145) Potassium Level 3.9 mmol/L (3.5-5.1) Chloride Level 100 mmol/L (98-107) Carbon Dioxide Level 22 mmol/L (20-31) Anion Gap 9 (5-15) Blood Urea Nitrogen 10 mg/dL (9-23) Creatinine 0.62 mg/dL (0.700-1.30) Glomerular Filtration Rate Calc 102 mL/min (>90) BUN/Creatinine Ratio 16.1 (10.0-20.0) Serum Glucose 188 mg/dL (74-106) Calcium Level 9.0 mg/dL (8.7-10.4) Total Bilirubin 0.6 mg/dL (0.2-1.0) Aspartate Amino Transferase (AST) 46 U/L (13-40) Alanine Aminotransferase (ALT) 43 U/L (7-40) Alkaline Phosphatase 91 U/L (46-116) Total Protein 6.5 g/dL (5.7-8.2) Albumin 3.5 g/dL (3.2-4.8) Thyroid Stimulating Hormone (TSH) 1.45 uIU/mL (0.55-4.78) Platelet Estimate Adequate Clumped Platelets Moderate Test 04/12/25 11:56 04/12/25 10:57 04/12/25 09:36 Influenza Type A Antigen Negative (Negative) Influenza Type B Antigen Negative (Negative) SARS-CoV-2 Antigen (Rapid) Negative (NEGATIVE) Urine Color Light-yellow (Yellow) Urine Clarity Clear (Clear) Urine pH 7.0 (5.0-9.0) Urine Specific [place] 1.019 (1.001-1.035) Urine Protein Negative (Negative) Urine Ketones Negative (Negative) Urine Blood Negative /uL (Negative) Urine Nitrite Negative (Negative) Urine Bilirubin Negative (Negative) Urine Urobilinogen Normal mg/dL (Negative) Urine Leukocyte Esterase Negative /uL (Negative) Urine RBC 1 /hpf (0 - 3) Urine Microscopic WBC < 1 /HPF (0-3) Urine Squamous Epithelial Cells None seen /hpf (<5) Urine Bacteria None seen /hpf (None Seen) Urine Yeast (Budding) Occasional /hpf (None Urine Glucose 4+ mg/dL (Normal) Hemoglobin A1c 9.2 % A1C (<5.7) Other Laboratory Tests 04/14/25 06:23 Brief Hx & Hospital Course: Baljit FloydMadi Santo, a 70-year-old male with a past medical history of type 2 diabetes mellitus, hyperlipidemia, hypertension, prior tonsillectomy, and hernia repair, presented to the emergency department with complaints of low energy, fatigue, and signs of dehydration. He reported a recent visit to the hospital on March 31 for an upper respiratory tract infection, for which he was treated with antibiotics and discharged. He subsequently received a vitamin B12 injection from his primary care physician. However, he began experiencing worsening fatigue, excessive sweating, and loss of appetite. He denied fever, chills, chest pain, shortness of breath, gastrointestinal or urinary symptoms, recent travel, or sick contacts. On evaluation, he was found to have hyperglycemia with a hemoglobin A1c of 9.2%, hyperkalemia (corrected from 5.5 to 4.4 with potassium-lowering agents), and asymptomatic hyponatremia (corrected sodium 134), likely secondary to hyperglycemia. His GFR showed improvement during hospitalization. He was managed with an insulin sliding scale, and with the Lantus 10 units, electrolyte monitoring, and supportive care. Rapid testing for COVID-19 and influenza was ordered , negative at the time of discharge; no antibiotics were deemed necessary. His blood pressure and lipid levels were monitored, and he was advised to resume home medications. The patient showed clinical improvement, was hemodynamically stable, and was deemed fit for discharge. He was counseled on the importance of strict glycemic control, healthy lifestyle modifications, and regular exercise. Follow-up with his primary care provider was recommended for further diabetic medication adjustment. Physical examination on the day of discharge: General Appearance: Alert, Oriented X3, Cooperative, Not in acute distress HEENT: Atraumatic, Mucous membranes moist/pink Respiratory: Clear to auscultation, Normal air movement, No added sounds Cardiovascular: Regular rate, Normal S1, Normal S2, No murmurs Abdominal: Active bowel sounds, Soft, no distention, no tenderness Extremities: No edema, Normal pulses, No tenderness/swelling Skin: No Significant rash, except past surgical scars Neuro: Normal speech, sensorimotor deficits none Psych/Mental Status: Mental status NL, Mood NL Nurse was there as technology education teacher during examination Discussed with Dr. Sommers Operations or Procedures XY CHEST TWO VIEWS ROUTINE, No acute intrathoracic abnormality. Condition at Discharge: Stable Final Diagnosis/Problems List # Generalized weakness likely from uncontrolled type 2 DM with the hyperglycemia # Hyperkalemia # hyponatremia asymptomatic likely from hyperglycemia # Ruled out COVID/flu # HTN # HLD Discharge Disposition: Home Discharge Instruct/Medications Diet: Consistent carbohydrate, Cardiac 2g Na,low cholest Activity: No Restrictions, As Tolerated Follow Up/Referral: PCP and discharge clinic within 1 to 2 weeks Medications: resume home meds Scheduled Atenolol (Atenolol), 1 TAB PO DAILY, (Reported) Gemfibrozil (Gemfibrozil), 1 TAB PO DAILY, (Reported) Levothyroxine Sodium (Levothyroxine Sodium), 1 TAB PO DAILY, (Reported) Scheduled PRN Acetaminophen (Acetaminophen), 500 MG PO Q4HP PRN Ibuprofen Micronized (Ibuprofen), 800 MG PO Q8HP PRN Ondansetron Odt 4MG Tab (Zofran Po), 4 MG PO Q6HP PRN Discharge Statement: "Patient was advised to return to the ER or call 911 if any headaches, dizziness, shortness of breath, chest pain, abdominal pain, bleeding, fevers, or worsening of medical condition. Patient was counseled about treatment plan, medications, possible side effects, patientverbalized understanding. All questions were answered to the best of my ability. This discharge took greater then 30 minutes in planning, reviewing documentation, counseling the patient, and discussing with other team members." ASSESSMENT ASSESSMENT Assessment # Generalized weakness likely from uncontrolled type 2 DM with the hyperglycemia # Hyperkalemia # hyponatremia asymptomatic likely from hyperglycemia # Ruled out COVID/flu # HTN # HLD Addendum Addendum Addendum I was physically present for the garcia portions of the service provided to patient by THE RESIDENT. I have reviewed the documentation, discussed the case with resident and agree with the resident's documentation except as noted. Also the patient's clinical case was discussed with the patient's nurse. This medical document was created using an electronic medical record system with computerized dictation system. Although this document has been carefully reviewed, there might still be some phonetic and typographical errors. These areas are purely typographical due to imperfections of the software programs, and do not reflect any compromise in the patient's medical care. Late signature. Date of Service: Apr 14, 2025 Billing Provider: KAYLAN SOMMERS MD Common Visit Codes: 13661-PEK/OBS DISCH DAY >30min JENNIFER ANGELES RESIDENT Apr 14, 2025 14:35 KAYLAN SOMMERS MD Apr 15, 2025 13:55
== END 2025-04-14 15:28 | disposition home or self-care (01) | DRG 638 ==
LOC: ER 08:29 → OVERFLOW 12:45 → TELE-WESTW 18:54
PROVIDERS: ADMIT Internal Medicine; ATTEND Physician Assistant
DX: E11.65 Type 2 diabetes mellitus with hyperglycemia (principal); E87.1 Hypo-osmolality and hyponatremia; N17.9 Acute kidney failure, unspecified; I10 Essential (primary) hypertension; E78.5 Hyperlipidemia, unspecified; E87.5 Hyperkalemia; Z20.822 Contact with and (suspected) exposure to COVID-19; Z87.891 Personal history of nicotine dependence; Z83.3 Family history of diabetes mellitus; Z90.49 Acquired absence of other specified parts of digestive tract
CPT/HCPCS: 36415; 71046; 80048; 80053; 81001; 82962; 83036; 84443; 85025; 87426; 87804; 96361; 96365; G0378; J1815